=== PATIENT | female | born 1940 | race Caucasian/White ===

== ENCOUNTER 2018-08-09 09:49 | Emergency (ER) | payer MEDICARE ==
--- NOTE | 2018-08-09 10:48 | EDM.PDOC ---
ED HPI GENERAL MEDICAL PROBLEM - General Chief Complaint: General Stated Complaint: FELL AND BECOMES LIGHT HEADED Time Seen by Provider: 08/09/18 10:15 Source of Information: Reports: Patient, Family History Limitations: Reports: No Limitations - History of Present Illness INITIAL COMMENTS - FREE TEXT/NARRATIVE: 78-year-old female had a closed head injury one week ago when she fell and hit her head on concrete. She had a small amount of anterograde and several minutes of retrograde amnesia which has not recovered. Since that time she's had some mild neck discomfort, but some recurring "spells" of fluttering in her chest followed by an ascending feeling of dizziness and lightheaded sensation that lasts about "5 seconds". These are happening 2-3 times daily. No pain or shortness of breath, no neurologic deficits, no visual complaints, no nausea or vomiting. She is concerned that it may be related to the head injury. She has a known history of coronary artery disease and has had stents in the past. Associated Symptoms: Denies: Chest Pain, Fever/Chills, Headaches, Loss of Appetite, Malaise, Nausea/Vomiting, Shortness of Breath - Related Data Allergies Allergy/AdvReac Type Severity Reaction Status Date / Time ciprofloxacin Allergy Diarrhea Verified 08/09/18 09:57 potassium clavulanate Allergy Diarrhea Verified 08/09/18 09:57 [From Augmentin] Home Meds: Home Meds Aspirin [Halfprin] 1 tab PO DAILY 05/30/14 [History] Cholecalciferol (Vitamin D3) [Vitamin D] 1 tab PO DAILY 05/30/14 [History] Lutein 1 tab PO DAILY 05/30/14 [History] Metoprolol Succinate 25 mg PO DAILY 08/09/18 [History] Nitroglycerin [Nitrostat] 0.4 mg SL ASDIRECTED 08/09/18 [History] Pravastatin Sodium 80 mg PO DAILY 08/09/18 [History] Past Medical History HEENT History: Reports: Cataract Cardiovascular History: Reports: CAD, High Cholesterol, Hypertension Genitourinary History: Reports: Renal Calculus 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 (See Below) Other GIS SOFTWARE DEVELOPER History: breast lumpectomy Hematologic History: Reports: Other (See Below) Other Hematologic History: Lymes Oncologic (Cancer) History: Reports: Uterine - Infectious Disease History Infectious Disease History: Reports: C-Difficile - Past Surgical History HEENT Surgical History: Reports: Cataract Surgery Cardiovascular Surgical History: Reports: Coronary Artery Bypass, Percutaneous Transluminal Angioplasty Female Surgical History: Reports: Hysterectomy, Kidney stone extraction, Lithotripsy/ESWL Social & Family History - Tobacco Use Smoking Status *Q: Former Smoker Used Tobacco, but Quit: Yes Month/Year Tobacco Last Used: 1984 - Caffeine Use Caffeine Use: Reports: None - Recreational Drug Use Recreational Drug Use: No ED ROS GENERAL - Review of Systems Review Of Systems: See Below Constitutional: Denies: Fever, Chills HEENT: Denies: Vision Change Respiratory: Denies: Shortness of Breath Cardiovascular: Reports: Lightheadedness, Palpitations GI/Abdominal: Reports: No Symptoms : Reports: No Symptoms Musculoskeletal: Reports: Neck Pain (Mild neck stiffness since her fall) Skin: Denies: Bruising Neurological: Reports: Dizziness (Only after the chest fluttering). Denies: Headache Psychiatric: Reports: No Symptoms ED EXAM, GENERAL - Physical Exam Exam: See Below Exam Limited By: No Limitations General Appearance: Alert, No Apparent Distress Eye Exam: Bilateral Eye: Normal Inspection Head: Atraumatic Neck: Normal Inspection, Non-Tender Respiratory/Chest: No Respiratory Distress, Lungs Clear Cardiovascular: Regular Rate, Rhythm Extremities: Normal Inspection Neurological: Alert, Oriented, No Motor/Sensory Deficits Psychiatric: Normal Affect, Normal Mood Skin Exam: Warm, Dry Course - Vital Signs Last Recorded V/S: Last Vital Signs Temp 96.7 F 08/09/18 09:58 Pulse 65 08/09/18 11:01 Resp 16 08/09/18 11:01 BP 145/61 H 08/09/18 11:01 Pulse Ox 98 08/09/18 11:01 - Re-Assessments/Exams Free Text/Narrative Re-Assessment/Exam: 08/09/18 10:47 Patient was placed on cardiac monitoring and had a normal sinus rhythm throughout her hospital visit. She was sent to the CT scan for head CT without contrast mainly because of the level of concern. 08/09/18 11:36 IMPRESSION: No acute intracranial abnormality. Results were explained to the patient, she elected to watchful wait with her symptoms over the next several days and consider a Holter monitor. She'll call if symptoms persist. Departure - Departure Time of Disposition: 11:58 Disposition: Home, Self-Care 01 Clinical Impression: Dizziness, Palpitations - Discharge Information Instructions: Near-Syncope, [id number] Referrals: PCP,None [Primary Care Provider] - Forms: ED Department Discharge Care Plan Goals: Continue activity as tolerated, call if symptoms are persisting and you are interested in setting up a Holter monitor. [phone] Return to the emergency room at any time if worsening or you develop other concerns.
[2018-08-09 11:02] VITALS: BP 145/61
--- NOTE | 2018-08-09 11:24 | CRLCT ---
HISTORY: Head injury. Concussion. Dizziness. TECHNIQUE: CT brain without contrast. COMPARISON: None. FINDINGS: No acute intracranial hemorrhage. No extra-axial collection. No mass effect or midline shift. Mild brain volume loss with proportional enlargement of the CSF spaces. Mild hypoattenuation in the deep white matter is nonspecific but likely chronic small vessel ischemic change. Cisterns are patent. Calvarium is intact. Imaged paranasal sinuses and mastoid air cells are clear. IMPRESSION: No acute intracranial abnormality. Dictated by Duane Hernandez MD @ 08/09/2018 11:21:59 AM Please note that all CT scans at this facility use dose modulation, iterative reconstruction, and/or weight-based dosing when appropriate to reduce radiation dose to as low as reasonably achievable. Dictated by: Duane Hernandez MD @ 08/09/2018 11:22:05 (Electronically Signed)
== END 2018-08-09 12:03 | disposition home or self-care (01) ==
LOC: JP.ED 09:49
DX: R00.2 Palpitations (principal); R42 Dizziness and giddiness; I10 Essential (primary) hypertension; E78.00 Pure hypercholesterolemia, unspecified; I25.10 Atherosclerotic heart disease of native coronary artery without angina pectoris; Z79.82 Long term (current) use of aspirin; Z79.899 Other long term (current) drug therapy; Z87.891 Personal history of nicotine dependence; Z88.1 Allergy status to other antibiotic agents
CPT/HCPCS: 70450; 99284-25

== ENCOUNTER 2019-02-16 05:38 | Day surgery (SDC) | payer MEDICARE ==
[2019-02-16] MEDS ORDERED: Dextrose 5%-Lactated Ringers 1,000 ML IV SCH (07:00)
[2019-02-16] MEDS ORDERED: Midazolam 1 MG/ML 2 ML SDV ONE (07:16)
[2019-02-16] MEDS ORDERED: fentaNYL 100 MCG/2 ML SDV ONE (07:16)
[2019-02-16] MEDS ORDERED: Propofol 200 MG/20 ML SDV ONE (07:16)
[2019-02-16 08:41] VITALS: BP 133/78; PULSE 72
--- NOTE | 2019-02-24 15:04 | OR ---
DATE OF PROCEDURE: 02/16/2019 SURGEON: Randall Gold MD PREOPERATIVE DIAGNOSIS: Indications for screening colonoscopy. POSTOPERATIVE DIAGNOSIS: Normal screening colonoscopy. PROCEDURE: Colonoscopy. ANESTHESIA: IV sedation. INDICATION FOR PROCEDURE: This is a 78-year-old presenting for a screening colonoscopy. She has neither a family or personal history of colonic neoplasia. Plan is to proceed with a colonoscopy with biopsies and/or polypectomy as indicated. Potential risks including bleeding and perforation were discussed, and the patient wishes to proceed. DETAILS OF PROCEDURE: The patient was taken to the operating room and placed in a left lateral decubitus position. IV sedation was administered, after which the initial digital rectal exam was performed and was unremarkable. Colonoscope was then passed into the rectum with retroflexion revealing uncomplicated hemorrhoidal columns. The scope was eventually passed to the cecum. The patient had a fair prep. There was moderate amount of liquid stool present were well visualized. Overall, there were no areas of colitis, no areas of diverticular disease, and no polyps or other signs of neoplasia. The scope was then withdrawn, the procedure then concluded, and the patient was taken to the recovery room in a satisfactory condition. Any additional colonoscopy would be per the judgment of her primary provider over time. Randall Gold MD Job #: [id number]
== END 2019-02-16 09:16 | disposition home or self-care (01) ==
LOC: JP.SDS 05:38
PROVIDERS: ATTEND Surgery
DX: Z12.11 Encounter for screening for malignant neoplasm of colon (principal); I25.10 Atherosclerotic heart disease of native coronary artery without angina pectoris; E78.5 Hyperlipidemia, unspecified; I10 Essential (primary) hypertension
CPT/HCPCS: G0121; J2250; J2704; J3010; J7042

== ENCOUNTER 2022-11-07 12:02 | Emergency (ER) | payer MEDICARE ==
[2022-11-07 12:27] VITALS: BP 140/66; PULSE 87
== END 2022-11-07 14:50 | disposition home or self-care (01) ==
LOC: JP.ED 12:02
DX: S02.40CA Maxillary fracture, right side, initial encounter for closed fracture (principal); I25.10 Atherosclerotic heart disease of native coronary artery without angina pectoris; I10 Essential (primary) hypertension; Z87.891 Personal history of nicotine dependence; Z95.5 Presence of coronary angioplasty implant and graft; Z79.899 Other long term (current) drug therapy; Z79.82 Long term (current) use of aspirin; Z88.1 Allergy status to other antibiotic agents; Z88.8 Allergy status to other drugs, medicaments and biological substances; W22.8XXA Striking against or struck by other objects, initial encounter
CPT/HCPCS: 70450; 70486; 99283

== ENCOUNTER 2022-12-23 10:55 | Emergency (ER) | payer MEDICARE ==
[2022-12-23 11:13] VITALS: BP 134/75
[2022-12-23 11:33] VITALS: PULSE 75
[2022-12-23] MEDS ORDERED: Dexamethasone 4 MG/ML SDV PO ONE (12:12)
[2022-12-23] MEDS ORDERED: Alum Hydrox/Mag Hydrox/Simeth 15 ML, Lidocaine 2% 15 ML PO ONE ×2 (12:13)
== END 2022-12-23 14:01 | disposition home or self-care (01) ==
LOC: JP.ED 10:55
DX: J02.9 Acute pharyngitis, unspecified (principal); I10 Essential (primary) hypertension; E78.00 Pure hypercholesterolemia, unspecified; Z88.1 Allergy status to other antibiotic agents; I25.10 Atherosclerotic heart disease of native coronary artery without angina pectoris; Z88.8 Allergy status to other drugs, medicaments and biological substances; Z79.82 Long term (current) use of aspirin
CPT/HCPCS: 99282; A9270; J8540